=== PATIENT | female | born 2000 | race Caucasian/White ===

== ENCOUNTER 2022-12-02 09:17 | Emergency (ER) | payer OTHER ==
[2022-12-02 09:22] VITALS: BP 125/76; PULSE 97; RESP 20; TEMP 98.9; BMI 31.4
[2022-12-02 11:46] LABS: URINE APPEARANCE CLEAR; URINE BILIRUBIN NEGATIVE (NEGATIVE); URINE COLOR YELLOW; URINE GLUCOSE (UA) NEGATIVE (NEGATIVE); URINE KETONE NEGATIVE (NEGATIVE); URINE LEUK ESTERASE NEGATIVE (NEGATIVE); URINE NITRITE NEGATIVE (NEGATIVE); URINE PROTEIN NEGATIVE (NEGATIVE); URINE UROBILINOGEN 0.2 mg/dL (0.2-1.0)
[2022-12-02 12:06] LABS: BASO % 0.4 % (0-2.0); EOS % 1.3 % (0-4.5); HEMATOCRIT 41.8 % (32.4-45.2); HEMOGLOBIN 14.3 GM/dL (10.7-15.3); LYMPH % 21.2 % (8-40); MCH 31.5 pg (25.7-33.7); MCHC 34.2 g/dl (32.0-36.0); MEAN CELL VOLUME 91.9 fl (80-96); MEAN PLT VOLUME 7.7 fl (7.5-11.1); MONO % 6.9 % (3.8-10.2); NEUT % 70.2 % (42.8-82.8); PLATELET COUNT 340 10^3/uL (134-434); RBC 4.55 M/mm3 (3.60-5.2); RDW 13.5 % (11.6-15.6); WHITE BLOOD COUNT 9.4 K/mm3 (4.0-10.0)
[2022-12-02 13:00] LABS: CALCIUM 9.8 mg/dL (8.5-10.1)
[2022-12-02 13:01] LABS: ALBUMIN 4.1 g/dl (3.4-5.0); BLOOD UREA NITROGEN 8.1 mg/dL (7-18)
[2022-12-02 13:04] LABS: CREATININE 0.6 mg/dL (0.55-1.3)
[2022-12-02 13:05] LABS: BILIRUBIN,TOTAL 0.3 mg/dL (0.2-1); TOT PROT 7.5 g/dl (6.4-8.2)
== END 2022-12-02 16:25 | disposition home or self-care (01) ==
LOC: JER 09:17
DX: O26.899 Other specified pregnancy related conditions, unspecified trimester (principal); R10.30 Lower abdominal pain, unspecified; Z3A.00 Weeks of gestation of pregnancy not specified
CPT/HCPCS: 36415; 76801-TC; 80053; 81003; 84702; 85025; 86850; 86900; 86901; 87086; 99284-25

== ENCOUNTER 2023-02-13 18:55 | Emergency (ER) | payer OTHER ==
[2023-02-13 19:17] VITALS: BP 115/65; PULSE 92; RESP 16; TEMP 98.8; BMI 23.5
[2023-02-13 20:46] LABS: URINE APPEARANCE CLEAR; URINE BILIRUBIN NEGATIVE (NEGATIVE); URINE COLOR YELLOW; URINE GLUCOSE (UA) NEGATIVE (NEGATIVE); URINE KETONE NEGATIVE (NEGATIVE); URINE LEUK ESTERASE NEGATIVE (NEGATIVE); URINE NITRITE NEGATIVE (NEGATIVE); URINE PROTEIN NEGATIVE (NEGATIVE)
[2023-02-13 21:46] LABS: BASO % 0.2 % (0-2.0); EOS % 0.5 % (0-4.5); HEMATOCRIT 37.7 % (32.4-45.2); HEMOGLOBIN 13.4 GM/dL (10.7-15.3); LYMPH % 20.4 % (8-40); MCH 32.2 pg (25.7-33.7); MCHC 35.7 g/dl (32.0-36.0); MEAN CELL VOLUME 90.2 fl (80-96); MEAN PLT VOLUME 7.3 fl (7.5-11.1); MONO % 6.5 % (3.8-10.2); NEUT % 72.4 % (42.8-82.8); PLATELET COUNT 343 10^3/uL (134-434); RBC 4.18 M/mm3 (3.60-5.2); RDW 13.7 % (11.6-15.6); WHITE BLOOD COUNT 10.4 K/mm3 (4.0-10.0)
[2023-02-13 22:06] LABS: ALBUMIN 3.3 g/dl (3.4-5.0); BLOOD UREA NITROGEN 4.5 mg/dL (7-18)
[2023-02-13 22:08] LABS: CREATININE 0.4 mg/dL (0.55-1.3)
[2023-02-13 22:10] LABS: BILIRUBIN,TOTAL 0.3 mg/dL (0.2-1); TOT PROT 7.1 g/dl (6.4-8.2)
== END 2023-02-13 23:53 | disposition home or self-care (01) ==
LOC: JER 18:55
DX: O23.592 Infection of other part of genital tract in pregnancy, second trimester (principal); B37.9 Candidiasis, unspecified; O21.9 Vomiting of pregnancy, unspecified; Z3A.17 17 weeks gestation of pregnancy
CPT/HCPCS: 36415; 76816-TC; 80053; 81003; 85025; 87081; 99284-25

== ENCOUNTER 2023-07-12 08:10 | Inpatient (IN) | payer OTHER ==
[2023-07-12 09:14] VITALS: BMI 27.3
[2023-07-12] MEDS ORDERED: ELECTROLYTE-148 SOLN 1,000 ML IV SCH (09:15)
[2023-07-12] MEDS ORDERED: DINOPROSTONE 10 MG VAGINAL SUPPOSITORY VG ONE (09:15)
[2023-07-12] MEDS ORDERED: AMPICILLIN - 2 GM in SODIUM CHLORIDE 100 ML IVPB ONE (09:48)
[2023-07-12] MEDS: ELECTROLYTE-148 SOLN 1,000 ML IV SCH ×2 (17:15→22:15)
[2023-07-12] MEDS ORDERED: SODIUM CHLORIDE 100 ML IVPB ONE (17:26)
[2023-07-12] MEDS ORDERED: AMPICILLIN SODIUM 2 GM VIAL ONE (17:26)
[2023-07-12] MEDS: AMPICILLIN - 1 GM in SODIUM CHLORIDE 100 ML IVPB SCH ×2 (18:13→22:20)
[2023-07-12] MEDS ORDERED: AMPICILLIN SODIUM 1 GM VIAL ONE (22:18)
[2023-07-12] MEDS ORDERED: OXYTOCIN 30 UNITS in 0.9% NS 30 UNIT/500 ML INFUS.BAG IVPB SCH (23:30)
[2023-07-12] MEDS ORDERED: OXYTOCIN 30 UNITS in 0.9% NS 30 UNIT/500 ML INFUS.BAG IVPB ONE (23:35)
[2023-07-13] MEDS ORDERED: AMPICILLIN SODIUM 1 GM VIAL ONE ×5 (02:29→18:41)
[2023-07-13] MEDS: AMPICILLIN - 1 GM in SODIUM CHLORIDE 100 ML IVPB SCH ×5 (02:30→18:45)
[2023-07-13] MEDS: ELECTROLYTE-148 SOLN 1,000 ML IV SCH ×2 (06:30→12:10)
[2023-07-13] MEDS ORDERED: SODIUM CHLORIDE 100 ML IVPB ONE ×3 (10:39→18:41)
[2023-07-13] MEDS ORDERED: FENTANYL/BUPIVACAINE/NS/PF - PCEA - 50 ML DISP.SYRIN EP ONE ×2 (11:06→16:05)
[2023-07-13] MEDS ORDERED: NALOXONE HCL 0.4 MG/ML VIAL IVPUSH PRN (11:14)
[2023-07-13] MEDS ORDERED: FENTANYL CITRATE/PF 50 MCG/ML VIAL ONE ×3 (11:30→20:19)
[2023-07-13] MEDS: FENTANYL/BUPIVACAINE/NS/PF - PCEA - 50 ML DISP.SYRIN EP SCH ×2 (11:43→16:10)
[2023-07-13] MEDS ORDERED: CITRIC ACID/SODIUM CITRATE 30 ML UNIT-DOSE CUP PO ONE (18:00)
[2023-07-13] MEDS ORDERED: ONDANSETRON 4 MG/2 ML VIAL ONE ×2 (19:09→20:19)
[2023-07-13] MEDS: ONDANSETRON 4 MG/2 ML VIAL IVPUSH PRN ×2 (19:10→19:30)
[2023-07-13] MEDS ORDERED: morphine SULFATE/PF 1 MG/2 ML (2cc Syringe - QUVA) ONE (19:10)
[2023-07-13] MEDS ORDERED: KETOROLAC TROMETHAMINE 60 MG/2 ML VIAL ONE (20:19)
[2023-07-13] MEDS ORDERED: LIDOCAINE HCL/PF 2% SDV 5ML VIAL ONE (20:19)
[2023-07-13] MEDS ORDERED: ceFAZolin SODIUM 1 GM VIAL ONE (20:19)
[2023-07-13] MEDS ORDERED: DEXAMETHASONE SOD PHOSPHATE 4 MG/1 ML VIAL ONE (20:19)
[2023-07-13] MEDS ORDERED: OXYTOCIN 10 UNITS/ML VIAL ONE (20:19)
[2023-07-13] MEDS ORDERED: SENNOSIDES/DOCUSATE COMBO (SENNA PLUS) TABLET (UD) PO PRN (20:37)
[2023-07-13] MEDS ORDERED: ONDANSETRON 4 MG/2 ML VIAL IVPB PRN (20:37)
[2023-07-13] MEDS ORDERED: ACETAMINOPHEN 325 MG TABLET (FP) PO PRN (20:37)
[2023-07-13] MEDS: OXYTOCIN 20 UNITS in 0.9% NS 20 UNIT/1,000 ML INFUS.BAG IV SCH (20:45)
[2023-07-13] MEDS: ACETAMINOPHEN 1000 MG/100 ML BAG IVPB PRN (20:46)
[2023-07-13] MEDS ORDERED: morphine SULFATE/PF 1 MG/2 ML (2cc Syringe - QUVA) EP ONE (20:46)
[2023-07-13] MEDS: SENNOSIDES/DOCUSATE COMBO (SENNA PLUS) TABLET (UD) PO SCH (23:19)
[2023-07-14] MEDS: IBUPROFEN 800 MG/8 ML IJ IVPB PRN ×2 (02:02→09:05)
[2023-07-14] MEDS: OXYTOCIN 20 UNITS in 0.9% NS 20 UNIT/1,000 ML INFUS.BAG IV SCH (02:55)
[2023-07-14] MEDS: AMPICILLIN - 1 GM in SODIUM CHLORIDE 100 ML IVPB SCH (03:33)
[2023-07-14] MEDS: ACETAMINOPHEN 1000 MG/100 ML BAG IVPB PRN (07:45)
[2023-07-14] MEDS: PRENATAL VITAMINS W/ FOLIC ACID TABLET (FP) PO SCH (09:04)
[2023-07-14 12:34] LABS: BASO % 0.1 % (0-2.0); EOS % 0.1 % (0-4.5); HEMATOCRIT 34.2 % (32.4-45.2); HEMOGLOBIN 11.5 GM/dL (10.7-15.3); LYMPH % 10.9 % (8-40); MCHC 33.7 g/dl (32.0-36.0); MEAN CELL VOLUME 95.1 fl (80-96); MEAN PLT VOLUME 7.9 fl (7.5-11.1); MONO % 6.3 % (3.8-10.2); NEUT % 82.6 % (42.8-82.8); PLATELET COUNT 274 10^3/uL (134-434); RDW 13.5 % (11.6-15.6); WHITE BLOOD COUNT 15.9 K/mm3 (4.0-10.0)
[2023-07-14] MEDS: oxyCODONE HCL 5 MG TABLET PO PRN (13:52)
[2023-07-14] MEDS: SIMETHICONE 80 MG TAB.CHEW (FP) PO PRN (13:52)
[2023-07-14] MEDS: IBUPROFEN 600 MG TABLET (FP) PO PRN ×2 (16:40→20:47)
[2023-07-14] MEDS ORDERED: BISACODYL 10 MG SUPP.RECT RC PRN (20:37)
[2023-07-14] MEDS: SENNOSIDES/DOCUSATE COMBO (SENNA PLUS) TABLET (UD) PO SCH (22:53)
[2023-07-15] MEDS: oxyCODONE HCL 5 MG TABLET PO PRN (01:22)
[2023-07-15] MEDS: SIMETHICONE 80 MG TAB.CHEW (FP) PO PRN ×3 (04:38→23:48)
[2023-07-15] MEDS: IBUPROFEN 600 MG TABLET (FP) PO PRN ×4 (04:38→23:48)
[2023-07-15] MEDS: PRENATAL VITAMINS W/ FOLIC ACID TABLET (FP) PO SCH (09:44)
[2023-07-15] MEDS: OXYTOCIN 20 UNITS in 0.9% NS 20 UNIT/1,000 ML INFUS.BAG IV SCH (21:00)
[2023-07-15] MEDS: SENNOSIDES/DOCUSATE COMBO (SENNA PLUS) TABLET (UD) PO SCH (23:48)
[2023-07-16] MEDS: PRENATAL VITAMINS W/ FOLIC ACID TABLET (FP) PO SCH (09:47)
[2023-07-16] MEDS: IBUPROFEN 600 MG TABLET (FP) PO PRN (09:47)
[2023-07-16 10:12] VITALS: BP 116/79; PULSE 102; RESP 16; TEMP 99.3
== END 2023-07-16 12:20 | disposition home or self-care (01) | DRG 540 ==
LOC: JLDR 08:10 → J3W 07-13 21:49
PROVIDERS: ADMIT Obstetrics & Gynecology; ATTEND Specialist
PROC: 3E0P7VZ Introduction of Hormone into Female Reproductive, Via Natural or Artificial Opening (ICD-10-PCS; 2023-07-12)
PROC: 10907ZC Drainage of Amniotic Fluid, Therapeutic from Products of Conception, Via Natural or Artificial Opening (ICD-10-PCS; principal; 2023-07-13)
PROC: 10D00Z1 Extraction of Products of Conception, Low, Open Approach (ICD-10-PCS; 2023-07-13)
DX: O61.0 Failed medical induction of labor (principal); O99.824 Streptococcus B carrier state complicating childbirth; Z3A.40 40 weeks gestation of pregnancy; Z37.0 Single live birth
CPT/HCPCS: 36415; 85025; 88307-TC; 93971-TC